=== PATIENT | female | born 1970 | race African-American/Black ===

== ENCOUNTER 2017-10-02 07:33 | Outpatient (CLI) | payer OTHER ==
--- NOTE | 2017-10-02 11:14 | ULT ---
ABDOMINAL ULTRASOUND: Date: 10/02/17 HISTORY: Elevated alkaline phosphatase. COMPARISON: None. TECHNIQUE: Utilizing a multihertz transducer, sonographic imaging of the abdomen is performed in the longitudin al and transverse plane. FINDINGS: Visualized hepatic parenchyma has a normal echotexture. No hepatic masses or intrahepatic biliary di latation. Contour of the hepatic margin maintained. Right hepatic lobe measures 17.1 cm. Gallbladder is surgically absent. Limited evaluation of the common bile duct. The head of the pancreas has a normal echotexture. The remainder of the pancreas is obscured by figueroa l gas. Bilaterally, no hydronephrosis. Kidneys haven normal cortical echotexture. Right kidney measures 10. 2 x 4.5 x 5.4 cm. Left kidney measures 11.4 x 4.5 x 4.6 cm. Spleen has a normal echotexture with maximum dimension of 9.4 cm. Evaluation of the aorta and inferior vena cava is limited. IMPRESSION: 1. Surgically absent gallbladder. 2. Suboptimal evaluation of the common bile duct. 3. No acute abnormality in the abdomen. POS: LOBITO
== END 2017-10-02 07:34 | disposition home or self-care (01) ==
LOC: NAV ULT 07:33
PROVIDERS: ATTEND Nurse Practitioner Family
DX: R74.8 Abnormal levels of other serum enzymes (principal); Z90.49 Acquired absence of other specified parts of digestive tract
CPT/HCPCS: 76700

== ENCOUNTER 2023-12-14 11:50 | Emergency (ER) | payer OTHER | END 2023-12-14 12:33 | disposition home or self-care (01) | LOC: NAV ERS 11:50 | DX: G40.909 Epilepsy, unspecified, not intractable, without status epilepticus (principal); I10 Essential (primary) hypertension; Z76.0 Encounter for issue of repeat prescription | CPT/HCPCS: 99283 ==